=== PATIENT | female | born 1950 | race Caucasian/White ===

== ENCOUNTER → 2016-11-06 | Outpatient (CLI) | payer OTHER ==
[~2016-11-06] MED LIST: ASPIRIN 32325 MG/TAB PO; ASPIRIN E.C. 8181 MG PO; LIPITOR20 MG PO
== END ==
LOC: MC.RAD 07:20
DX: Z12.31 Encounter for screening mammogram for malignant neoplasm of breast (principal)

== ENCOUNTER 2016-12-02 14:55 | Outpatient (RCR) | payer OTHER | END 2017-03-02 | LOC: WSOH | DX: S39.012A Strain of muscle, fascia and tendon of lower back, initial encounter (principal); X50.1XXA Overexertion from prolonged static or awkward postures, initial encounter; Y99.0 Civilian activity done for income or pay ==

== ENCOUNTER → 2019-02-06 | Outpatient (CLI) | payer BC | LOC: MC.RAD 11:45 | DX: Z12.31 Encounter for screening mammogram for malignant neoplasm of breast (principal) ==

== ENCOUNTER → 2019-06-28 | Outpatient (CLI) | payer BC ==
[~2019-06-28] VITALS: Ht 157.5 cm; Wt 66.0 kg
[~2019-06-28] MED LIST changes: +ERGOCALCIFER50000 IU PO; +HCTZ 25MG TAB25 MG PO
[2019-06-28 15:43] VITALS: BP 112/72; PULSE 66; TEMP 97.8
== END ==
LOC: EUO 15:00
DX: M81.0 Age-related osteoporosis without current pathological fracture (principal)
CPT/HCPCS: J3489

== ENCOUNTER → 2020-06-27 | Outpatient (CLI) | payer MEDICARE, BC | LOC: MC.RAD 07:15 | DX: Z12.31 Encounter for screening mammogram for malignant neoplasm of breast (principal) ==

== ENCOUNTER → 2020-07-15 | Outpatient (CLI) | payer BC, MEDICARE | LOC: ZCOL.LAB 16:47 | DX: R50.9 Fever, unspecified (principal); R19.7 Diarrhea, unspecified; Z20.828 Contact with and (suspected) exposure to other viral communicable diseases ==

== ENCOUNTER 2021-05-16 14:02 | Outpatient (CLI) | payer MEDICARE, BC ==
[~2021-05-16] VITALS: Ht 157.5 cm; Wt 66.6 kg
[2021-05-16 15:24] VITALS: BP 108/67; PULSE 76; TEMP 98
== END 2021-05-16 15:25 | disposition home or self-care (01) ==
LOC: EUO 14:02
DX: M81.0 Age-related osteoporosis without current pathological fracture (principal)
CPT/HCPCS: J3489

== ENCOUNTER 2022-06-23 07:21 | Day surgery (SDC) | payer MEDICARE, BC ==
[~2022-06-23] VITALS: Ht 157.5 cm; Wt 69.6 kg
[2022-06-23 07:42] VITALS: BP 127/73; PULSE 81; TEMP 97.1
[2022-06-23 08:55] VITALS: BP 96/60; PULSE 70; TEMP 97.6
[2022-06-23 09:10] VITALS: BP 100/72; PULSE 70
[2022-06-23 09:25] VITALS: BP 110/64; PULSE 69
== END 2022-06-23 09:40 | disposition home or self-care (01) ==
LOC: SDCO 07:21
DX: K62.1 Rectal polyp (principal); Z86.010 Personal history of colon polyps; K64.0 First degree hemorrhoids
CPT/HCPCS: J2704; J7120

== ENCOUNTER 2023-03-16 09:32 | Observation (INO) | payer MEDICARE, BC ==
[~2023-03-16] VITALS: Ht 157.5 cm; Wt 69.3 kg
[2023-03-16 12:34] LABS: ALBUMIN 4.1 gm/dL (3.4-4.8); BILIRUBIN,TOTAL 0.6 mg/dL (0.2-1.2); CALCIUM 9.5 mg/dL (8.4-10.2); CREATININE, serum 0.8 mg/dL (0.57-1.11); POTASSIUM 3.1 mmol/L (3.5-4.5)
[2023-03-16 12:43] LABS: BASO % 0.2 % (0.0-2.0); GRAN # 17.2 K/mm3 (1.4-6.5); GRAN % 85.6 % (42.2-75.2); HEMATOCRIT 44.4 % (37.0-47.0); HEMOGLOBIN 14.5 g/dl (12.5-16.0); LYMPH # 1.2 K/mm3 (1.2-3.4); LYMPH % 5.9 % (20.0-51.0); MEAN CELL VOLUME 95 fl (80.0-100.0); MEAN CORPUSCULAR HEMOGLOBIN 31 pg (27-31); MEAN CORPUSCULAR HGB CONC 33 g/dl (33.0-37.0); MEAN PLATELET VOLUME 10.8 fl (7.4-10.4); MONO # 1.5 K/mm3 (0.1-0.6); MONO % 7.4 % (1.7-9.3); PLATELET COUNT 253 K/mm3 (130-400); REDCELL DISTRIBUTION WIDTH-CV 12.9 % (11.5-14.5)
[2023-03-16 14:47] VITALS: BP 123/67; PULSE 70; TEMP 97.6
--- NOTE | 2023-03-16 14:47 | NUR ---
Pt. arrived to the floor via stretcher.Pt. able to ambulate to the bed independently. Pt. is A&OX3, assessment complete. Pt. rates pain at a 6 on pain scale to rt. side. Pt. denies further needs, call light within reach.
[2023-03-16 15:36] LABS: COLLECTION METHOD CLEAN CATCH
[2023-03-16 15:52] LABS: MUCOUS Present (NOT PRESENT); SQUAMOUS EPITHELIAL 0-2 /hpf (0-10); URINE APPEARANCE Clear (CLEAR/HAZY); URINE BACTERIA Rare /hpf (NONE SEEN); URINE BLOOD Negative (NEGATIVE); URINE COLOR Yellow (YELLOW); URINE GLUCOSE Negative (NEGATIVE); URINE KETONE TRACE (NEGATIVE); URINE NITRATE Negative (NEGATIVE); URINE PROTEIN(semi-quant) 1+ (NEGATIVE); URINE UROBILINOGEN 0.2 E.U/dL (0.2-1.0)
[2023-03-16 16:00] VITALS: BP_SYST 123
[2023-03-16 18:30] VITALS: BP_SYST 126
[2023-03-16 19:23] VITALS: BP 126/60; PULSE 83; TEMP 97.5
[2023-03-16 21:00] VITALS: BP_SYST 126
[2023-03-16 23:21] VITALS: BP 120/53; PULSE 76; TEMP 97.6
[2023-03-17 01:04] VITALS: BP_SYST 120
--- NOTE | 2023-03-17 02:14 | NUR ---
PT C/O 03/27 PAIN TO LEFT SIDE OF RIBS. DECLINES MORE ICE SHE SAYS IT IS VERY UNCOMFORTABLE TO LIE ON ICE ALL NIGHT. DIDN'T REQUEST ANYTHING MORE THAN SCHEDULED TYLENOL BEFORE HS.
[2023-03-17 03:23] VITALS: BP 125/60; PULSE 70; TEMP 98.1
[2023-03-17 05:00] VITALS: BP_SYST 125
[2023-03-17 06:45] LABS: BASO % 0.1 % (0.0-2.0); EOS % 0.2 % (0.0-4.0); GRAN # 5.8 K/mm3 (1.4-6.5); GRAN % 67.4 % (42.2-75.2); HEMATOCRIT 37.4 % (37.0-47.0); HEMOGLOBIN 12.6 g/dl (12.5-16.0); LYMPH # 1.9 K/mm3 (1.2-3.4); LYMPH % 21.5 % (20.0-51.0); MEAN CELL VOLUME 91 fl (80.0-100.0); MEAN CORPUSCULAR HEMOGLOBIN 31 pg (27-31); MEAN CORPUSCULAR HGB CONC 34 g/dl (33.0-37.0); MEAN PLATELET VOLUME 10.9 fl (7.4-10.4); MONO # 0.9 K/mm3 (0.1-0.6); MONO % 10.6 % (1.7-9.3); PLATELET COUNT 200 K/mm3 (130-400); RED BLOOD COUNT 4.11 M/mm3 (4.10-5.30); REDCELL DISTRIBUTION WIDTH-CV 13.1 % (11.5-14.5)
[2023-03-17 07:03] LABS: ALBUMIN 3.2 gm/dL (3.4-4.8); BILIRUBIN,TOTAL 0.7 mg/dL (0.2-1.2); CALCIUM 8.5 mg/dL (8.4-10.2); CREATININE, serum 0.66 mg/dL (0.57-1.11); TOTAL PROTEIN 5.9 gm/dL (6.2-8.1)
[2023-03-17 08:22] VITALS: BP 132/65; PULSE 66; TEMP 98.1
[2023-03-17 08:30] VITALS: BP_SYST 132
--- NOTE | 2023-03-17 08:30 | NUR ---
Pt. sitting up in bed. Pt. is A&OX3, assessment complete. IV to lt. wrist patent. Pt. reports pain to rt. side at a 5 on pain scale, gave pain meds per orders. Pt. denies further needs, call light within reach.
[2023-03-17] MEDS ORDERED: TYLENOL 500MG500 MG PO (12:06)
[2023-03-17] MEDS ORDERED: ROXICODONE 55 MG/TAB PO (12:07)
[2023-03-17 13:34] VITALS: BP 110/62; PULSE 78; TEMP 99
--- NOTE | 2023-03-17 14:00 | NUR ---
Pt. tolerated ambulating in the [place] independently. Educated pt. on IS. Pt. reports that she has 2 at home and will use them there. Reviewed usage with the pt. Pt. voices understanding. INT discontinued from lt. wrist. Pt. getting dressed and will call when her ride arrives.
--- NOTE | 2023-03-17 14:40 | NUR ---
Pt.'s ride has arrived. Pt. escorted out.
== END 2023-03-17 14:40 | disposition home or self-care (01) ==
LOC: COL.ER 09:32 → SURG 13:12
PROVIDERS: Emergency Medicine; ADMIT Surgery
DX: S22.41XA Multiple fractures of ribs, right side, initial encounter for closed fracture (principal); W10.8XXA Fall (on) (from) other stairs and steps, initial encounter; Y92.098 Other place in other non-institutional residence as the place of occurrence of the external cause
CPT/HCPCS: G0378; J2270; J2405; J3010; J7042; Q9967

== ENCOUNTER → 2023-10-25 | Outpatient (CLI) | payer MEDICARE ==
[~2023-10-25] MED LIST changes: +ROXICODONE 55 MG/TAB PO; +TYLENOL 500MG500 MG PO
== END ==
LOC: MC.RAD 08:00
DX: Z12.31 Encounter for screening mammogram for malignant neoplasm of breast (principal)